=== PATIENT | female | born 1990 | race Caucasian/White ===

== ENCOUNTER 2019-04-02 19:50 | Emergency (ER) | payer MEDICAID ==
[~2019-04-02] VITALS: Ht 152.4 cm; Wt 63.0 kg
[2019-04-02 20:04] VITALS: BP 108/74
--- NOTE | 2019-04-02 20:07 | NUR ---
TO LOBBY A/W BED AMBULATORY
--- NOTE | 2019-04-02 22:35 | NUR ---
US AT BEDSIDE.
--- NOTE | 2019-04-02 23:05 | NUR ---
PHLEB DRAWING LABS AT BEDSIDE.
--- NOTE | 2019-04-02 23:10 | NUR ---
28 YO F BIB SELF PRESENTS TO ED C/O GENERALIZED ABD PAIN X 2 DAYS. PT STATES THAT WHEN SHE WIPES AFTER A BOWEL MOVEMENT SHE SEES SMALL BRIGHT RED BLOOD ON TOILET PAPER. DENIES HX OF HEMORRHOIDS. DENIES PAINFUL/BURNING WITH URINATION, NVD OR CONSTIPATION, FEVER/CHILLS. LMP 03/11/19.
[2019-04-02 23:16] LABS: BASOPHILS % (AUTO) 0.5 % (0.0-2.0); EOSINOPHILS # (AUTO) 0.2 K/uL (0-0.4); EOSINOPHILS % (AUTO) 2.9 % (0.0-4.0); HEMATOCRIT 40.7 % (36-48); HEMOGLOBIN 13.4 g/dL (12.0-16.0); LYMPHOCYTES # (AUTO) 3.4 K/uL (2.5-16.5); LYMPHOCYTES % (AUTO) 43.1 % (20.5-51.1); MEAN CORPUSCULAR HEMOGLOBIN 28 pg (27-31); MEAN CORPUSCULAR HGB CONC 33 g/dL (33-37); MEAN CORPUSCULAR VOLUME 84.4 fL (80-94); MONOCYTES # (AUTO) 0.6 K/uL (0.8-1.0); MONOCYTES % (AUTO) 7.1 % (1.7-9.3); NEUTROPHILS # (AUTO) 3.6 K/uL (1.8-7.7); NEUTROPHILS % (AUTO) 46.4 % (42.2-75.2); PLATELET COUNT (AUTO) 229 K/uL (140-450); RED BLOOD CELL COUNT(AUTO) 4.83 MIL/uL (4.20-5.40); RED CELL DISTRIBUTION WIDTH 12.7 % (11.6-13.7); WHITE BLOOD COUNT (AUTO) 7.9 K/uL (4.8-10.8)
--- NOTE | 2019-04-02 23:23 | NUR ---
Dr. Celaya examining patient.
--- NOTE | 2019-04-02 23:30 | NUR ---
DIGITAL RECTAL EXAM PERFORMED BY DR. KOO.
--- NOTE | 2019-04-03 00:28 | NUR ---
PT TAKEN TO XRAY
[2019-04-03] MEDS ORDERED: LACTULOSE 20 GM/30 ML UDC PO ONE (01:05)
[2019-04-03 01:17] VITALS: BP 112/87
--- NOTE | 2019-04-03 01:17 | NUR ---
Patient discharged with v/s stable. She states relief with 2/10 tollerable pain. Written and verbal after care instructions given and explained. Patient alert, oriented and verbalized understanding of instructions. Ambulatory with steady gait. All questions addressed prior to discharge. ID band removed. Patient advised to follow up with PMD and when to return to ER. Rx of Miralax given. Patient educated on indication of medication including possible reaction and side effects. Opportunity to ask questions provided and answered.
== END 2019-04-03 01:17 | disposition home or self-care (01) ==
LOC: MED 19:50
DX: K59.00 Constipation, unspecified (principal); K62.5 Hemorrhage of anus and rectum
CPT/HCPCS: 36415; 74018; 76856; 84702; 85025; 99284

== ENCOUNTER 2019-04-27 16:03 | Emergency (ER) | payer MEDICAID ==
--- NOTE | 2019-04-27 16:26 | NUR ---
PATIENT LEFT WITHOUT BEING SEEN BY DR. SANTOS. NO FURTHER CARE PROVIDED FOR PATIENT.
--- NOTE | 2019-04-27 16:35 | NUR ---
2 ND CALL NO IN ER LOBBY
[2019-04-27 16:39] VITALS: BP 135/78
--- NOTE | 2019-04-27 16:40 | NUR ---
3ND CALL NO IN ER LOBBY
== END 2019-04-27 16:56 | disposition left against medical advice (07) ==
LOC: MED 16:03
DX: O26.891 Other specified pregnancy related conditions, first trimester (principal); R10.9 Unspecified abdominal pain; Z3A.01 Less than 8 weeks gestation of pregnancy; Z53.21 Procedure and treatment not carried out due to patient leaving prior to being seen by health care provider